=== PATIENT | male | born 1940 | race Caucasian/White ===

== ENCOUNTER 2018-11-20 17:31 | Observation (INO) ==
[2018-11-20] MEDS ORDERED: ONDANSETRON 4 MG/2 ML VIAL IV PRN (20:57)
[2018-11-20] MEDS ORDERED: ENOXAPARIN 40 MG/0.4 ML SYRINGE SUBCUT SCH (21:00)
[2018-11-20] MEDS ORDERED: EPINEPHrine 1 MG/ML VIAL SUBCUT PRN (21:05)
[2018-11-20] MEDS: methylPREDNISolone SOD SUC 40 MG/1 ML VIAL IV SCH (21:27)
[2018-11-20] MEDS: FAMOTIDINE 20 MG/2 ML VIAL IV SCH (21:27)
[2018-11-20] MEDS: ALBUTEROL 2.5 MG/3 ML NEB RESP TX PRN (21:37)
[2018-11-20 22:42] LABS: Calcium 8.7 MG/DL (8.5-10.1); Osmolality,Calculated 283.5 MOS/KG (273-304); Potassium 3.8 MMOL/L (3.5-5.1)
[2018-11-20] MEDS: diphenhydrAMINE 50 MG/1 ML VIAL IV SCH (23:58)
[2018-11-21] MEDS: ALBUTEROL 2.5 MG/3 ML NEB RESP TX PRN (04:15)
[2018-11-21 05:19] LABS: Basophils % 0.3 % (0.0-0.8); Hematocrit 47.4 VOL% (42.0-52.0); Hemoglobin 15.2 GM/DL (14.0-18.0); Immature Granulocytes % 0.8 %; Immature Granulocytes Absolute 0.03 #; Lymphocytes # 0.7 10*3/uL (1.4-4.0); Lymphocytes % 18.9 % (21.2-54.2); Mean Corpuscular HGB Conc 32.1 GM/DL (32-36); Mean Corpuscular Hemoglobin 30 PG (27-34); Mean Corpuscular Volume 91.9 FL (87-102); Mean Platelet Volume 10.9 FL (9.6-12.0); Monocytes # 0.1 10*3/uL (0.11-0.8); Monocytes % 1.3 % (1.7-12.7); Neutrophils % 78.7 % (38.7-73.9); Platelet Count 166 T/CUMM (130-400); Red Blood Count 5.16 MC/CUMM (3.8-5.5); Red Cell Distribution Width 14.1 % (9.3-17.3); White Blood Count 3.8 T/CUMM (4-12)
[2018-11-21] MEDS: methylPREDNISolone SOD SUC 40 MG/1 ML VIAL IV SCH (05:23)
[2018-11-21] MEDS: diphenhydrAMINE 50 MG/1 ML VIAL IV SCH (05:23)
[2018-11-21 05:31] LABS: Calcium 8.7 MG/DL (8.5-10.1); Osmolality,Calculated 283.5 MOS/KG (273-304); Potassium 4.4 MMOL/L (3.5-5.1)
[2018-11-21 06:01] VITALS: BP 156/62
[2018-11-21] MEDS: FAMOTIDINE 20 MG/2 ML VIAL IV SCH (08:48)
[2018-11-21] MEDS ORDERED: NICOTINE 21 MG/24 HR PATCH TRANSDERM SCH (09:00)
[2018-11-21] MEDS ORDERED: diphenhydrAMINE 50 MG/1 ML VIAL IV PRN (09:12)
[2018-11-21] MEDS ORDERED: NEBIVOLOL 5 MG TABLET PO SCH ×2 (09:30→21:00)
[2018-11-21] MEDS ORDERED: FAMOTIDINE 20 MG TABLET PO SCH (09:30)
[2018-11-21] MEDS ORDERED: amLODIPine 5 MG TABLET PO SCH (21:00)
[2018-11-21] MEDS ORDERED: predniSONE 10 MG TABLET PO SCH (21:00)
== END 2018-11-21 11:15 | disposition home or self-care (01) ==
LOC: INTOOBSV 18:34 → N.CC 18:34 → SUATTDRO 18:34
PROVIDERS: ADMIT Internal Medicine; ATTEND Internal Medicine